=== PATIENT | male | born 1980 | race Caucasian/White ===

== ENCOUNTER 2017-03-17 14:31 | Emergency (ER) | payer MEDICAID ==
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
[2017-03-17 15:42] LABS: % EOSINOPHILS 0.8 % (0.0-5.0); % LYMPHOCYTES 17.3 % (20.0-50.0); % MONOCYTES 6.3 % (2.0-10.0); % NEUTROPHILS 75.6 % (40.0-80.0); HEMATOCRIT 50.9 % (39.0-49.0); HEMOGLOBIN 17.2 gm/dL (13.2-17.3); MEAN CELL VOLUME 91.9 fl (80-99); MEAN CORPUSCULAR HGB CONC 33.8 pg (28.0-36.0); MEAN PLATELET VOLUME 8.8 fl; NEUTROPHILE ABSOLUTE 9.4 Th/cmm (1.8-8.0); PLATELET COUNT 219 Th/cmm (150-400); RED BLOOD COUNT 5.54 Mil/cmm (4.30-5.70); RED CELL DISTRIBUTION WIDTH 12.3 % (11.5-20.0)
[2017-03-17 15:47] LABS: WHITE BLOOD COUNT 12.4 Th/cmm (4.8-10.8)
[2017-03-17 15:54] LABS: INR 1.05 (0.5-1.4); PROTHROMBIN TIME (TEST) 10.9 SECONDS (9.5-11.5)
[2017-03-17 15:55] LABS: ANION GAP 10.5 (7.0-16.0); BUN - UREA NITROGEN 18 mg/dL (7-25); BUN/CREATININE RATIO 16.4; CALCIUM SERUM 11.1 mg/dL (8.6-10.3); CARBON DIOXIDE 26.9 mEq/L (21.0-31.0); CHLORIDE 103 mEq/L (98-107); CREATININE - SERUM 1.1 mg/dL (0.7-1.3); GLUCOSE 126 mg/dL (70-105); POTASSIUM SERUM 4.4 mEq/L (3.5-5.1); SODIUM SERUM 136 mEq/L (136-145)
--- NOTE | 2017-03-18 11:04 | Diagnostic Imaging Report ---
CT maxillofacial bones without IV contrast History: Left periorbital swelling Comparison: None Technique: Axial images of maxillofacial bones were obtained without IV contrast. Multiplanar reconstructions were made. Total DLP to 63, CTD I 17.5 Findings: There is a displaced fracture of the medial wall of the left orbit with 6 mm medial displacement and diffuse pockets of gas including pockets of gas throughout the extraconal and intraconal left orbit. There is mild herniation of fat along the fracture fragment. No evidence of muscle herniation. Preseptal subcutaneous emphysema mild surrounding soft tissue swelling is noted. The left globe is intact. Bilateral ethmoid sinus disease is seen with expansile lesion of the right mid to posterior ethmoid air cells measuring 2.5 x 1.3 cm with mass effect upon the right medial rectus muscle. There is also bony thinning in this region. There is mild rightward deviation of the nasal septum. There is also additional mucosal thickening of the paranasal sinuses. Degenerative changes of the atlantodental articulation are noted with few pockets of gas. IMPRESSION: Evidence of left orbital trauma with displaced fracture involving the medial wall the left orbit with herniation of fat and diffuse gas pockets seen within the intraconal and extraconal compartment and left preseptal region. The left globe and left optic nerve are grossly intact. Please correlate with clinical findings. 2.5 x 1.3 cm expansile mass of the mid to posterior right ethmoid sinuses with associated surrounding bony thinning and mass effect upon the right extraconal compartment including the right medial rectus muscle. Findings may represent mucous retention cyst or polyp. Recommend clinical correlation and follow-up.
== END 2017-03-17 17:10 | disposition still patient (30) ==
LOC: ER 14:31
DX: S02.82XA Fracture of other specified skull and facial bones, left side, initial encounter for closed fracture (principal); F17.210 Nicotine dependence, cigarettes, uncomplicated; X58.XXXA Exposure to other specified factors, initial encounter; Y93.89 Activity, other specified; Y92.89 Other specified places as the place of occurrence of the external cause; Y99.8 Other external cause status
CPT/HCPCS: 99285; 96365; 70486; 36415; 83605; 85025; 85610; 80048; 87040 ×2; J2543